=== PATIENT | male | born 1980 | race Two or more races ===

== ENCOUNTER 2019-07-09 18:51 | Emergency (ER) | payer OTHER ==
[~2019-07-09] VITALS: Ht 172.7 cm; Wt 114.0 kg
[~2019-07-09 18:51] MED LIST: ACET-141 PO
[2019-07-09 19:01] VITALS: BP 148/85; PULSE 97; RESP 20; Ht 172.7 cm; Wt 114.0 kg
== END 2019-07-09 22:05 | disposition home or self-care (01) ==
LOC: FTE 18:51
DX: M25.562 Pain in left knee (principal)
CPT/HCPCS: 73562; Z7502